=== PATIENT | male | born 1935 | race Caucasian/White ===

== ENCOUNTER → 2017-08-03 | Outpatient (CLI) | payer OTHER ==
[~2017-08-03] MED LIST: ASPI81EC PO; ATOR10 PO; CLOP75 PO; GLIP10 PO; GLYB5 PO; Hair, Skin & N1 EACH; INS70/30I SC; INSULANPEN; LISI20 PO; MAGCHL64ER PO; METF500 PO; METO25 PO; MULTI VITAMIN1 EACH PO; MULVITMIND PO; Nifedical Xl30 MG PO; OMEP20ER PO; PANT40 PO; SIMV80 PO
== END | disposition home or self-care (01) ==
LOC: LAB SHORT 08:22 → PLD 08:22
DX: D22.5 Melanocytic nevi of trunk (principal)
CPT/HCPCS: 88305

== ENCOUNTER 2019-03-28 11:17 | Day surgery (SDC) | payer OTHER ==
[~2019-03-28] VITALS: Ht 180.3 cm; Wt 87.5 kg
[~2019-03-28 11:17] MED LIST changes: +ALLO300 PO; +ELIQUIS2.5 MG PO; +FAMC500 PO; -INSULANPEN; +INSULANPEN SC; -METO25 PO; +METO25ER PO; +NIFE30ER PO; +NOVOLOG FL100 UNIT/1 SC; -Nifedical Xl30 MG PO; +OMEPRAZOLE20 MG PO
--- NOTE | 2019-03-28 12:08 | NUR ---
03/28/19 4687 Radha Staples PT WAS NOTIFIED OF DELAY. HE IS WAITING IN THE LOBBY WITH FAMILY. HE WAS ADVISED HE WILL BE BROUGHT BACK WHEN A ROOM IS AVAILABLE. HE WAS VERY UNDERSTANDING.
[2019-03-28 16:56] LABS: Performing Lab SYMBIODX; Test Name FLOW CYTOMETRY
[2019-03-30 15:43] LABS: Performing Lab SYMBIODX; Test Name TISSUE BLOCK
[2019-04-07 15:29] LABS: Result SEE PATHOTH RESULTS
== END 2019-03-28 16:11 | disposition home or self-care (01) ==
LOC: ORSCSDS 11:17
PROVIDERS: Otolaryngology
PROC: 07B10ZX Excision of Right Neck Lymphatic, Open Approach, Diagnostic (ICD-10-PCS; principal; 2019-03-28 13:00)
DX: C85.11 Unspecified B-cell lymphoma, lymph nodes of head, face, and neck (principal); I12.9 Hypertensive chronic kidney disease with stage 1 through stage 4 chronic kidney disease, or unspecified chronic kidney disease; E11.22 Type 2 diabetes mellitus with diabetic chronic kidney disease; N18.9 Chronic kidney disease, unspecified; Z87.891 Personal history of nicotine dependence; Z79.4 Long term (current) use of insulin; I48.91 Unspecified atrial fibrillation; Z79.01 Long term (current) use of anticoagulants; Z79.899 Other long term (current) drug therapy
CPT/HCPCS: 82947; 88184; 88185; 88271; 88275; 88305; 88341; 88342; 88377; J1100; J2250; J2405; J2704; J3010; J7120

== ENCOUNTER 2019-03-29 10:14 | Inpatient (IN) | payer OTHER ==
[~2019-03-29] VITALS: Ht 182.9 cm; Wt 90.3 kg
[2019-03-29 10:30] LABS: Calcium, Ionized (POC) 1.18 mmol/L (1.10-1.46); Chloride (POC) 102 mmol/L (98-108); Creatinine (POC) 1.8 mg/dL (0.8-1.3); Glucose (ISTAT POC) 394 mg/dL (70-99); Hemoglobin (POC) 15.6 g/dL (13.5-17.5); Potassium (POC) 5.5 mmol/L (3.5-5.5); Sodium (POC) 132 mmol/L (135-148); Total CO2 (POC) 21 mmol/L (21-32)
[2019-03-29 10:35] LABS: Hemoglobin 13.8 g/dL (13.5-17.5); Mean Corpuscular HGB 26.1 pg (26.0-34.0); Mean Corpuscular HGB Conc 30.7 g/dL (31.5-36.5); Mean Corpuscular Volume 85 fL (80-100); Mean Platelet Volume 10.4 fL (9.1-12.4); Platelet Count 160 K/mm3 (150-400); RDW Coefficient Variation 14.5 % (11.7-14.2); RDW Standard Deviation 44.1 fL (35.1-46.3); Red Blood Cell Count 5.28 M/mm3 (4.30-5.90); White Blood Cell Count 13.96 K/mm3 (4.00-11.30)
[2019-03-29 11:02] LABS: Albumin, Blood 2.9 g/dL (3.4-5.0); Albumin/Globulin Ratio 0.9 (0.8-1.8); Bun/Creatinine Ratio 30.9 (12.0-20.0); Calcium, Blood 8.8 mg/dL (8.5-10.1); Creatinine, Blood 1.78 mg/dL (0.60-1.20); Globulin, Blood 3.4 g/dL (2.2-4.0); Potassium, Blood 5.5 mmol/L (3.5-5.5); Total Protein, Blood 6.3 g/dL (6.4-8.2); Troponin I 0.087 ng/mL (0.000-0.040)
[2019-03-29 11:26] LABS: BAND PERCENT MAN 1 % (0-8); BASOPHILS PERCENT MAN 0 % (0-2); EOSINOPHILS PERCENT MAN 0 % (0-6); LYMPHOCYTES ABSOLUTE MAN 0.83 K/mm3 (0.84-5.20); LYMPHOCYTES PERCENT MAN 6 % (21-46); MONOCYTES ABSOLUTE MAN 1.39 K/mm3 (0.16-1.47); MONOCYTES PERCENT MAN 10 % (4-13); NEUTROPHILS ABSOLUTE MAN 11.72 K/mm3 (1.96-9.15); SEG NEUTROPHILS PERCENT MAN 83 % (41-73); TOTAL CELLS COUNTED 100
[2019-03-29 12:04] LABS: Magnesium, Blood 1.3 mg/dL (1.6-2.4)
[2019-03-29 12:08] LABS: Thyroid Stimulating Hormone 3.2 uIU/mL (0.360-4.800)
--- NOTE | 2019-03-29 13:08 | NUR ---
PT ARRIVAL Pt arrival to PCU 12 via [facility] with ED RN at bedside. Pt infusing cardizem at 5 upon arrival with a tele rate of 100 and a rhythm of afib. Pt symptomatic with transfer from [facility] to bed, stating "i feel short of breath when I move like that." Lungs clear t/o. O2 saturations >95% on RA. pt appears in no apparent sign of distress. VSS. Breathing even and unlabored at rest with mild VALENTIN with transfers. Pt steady on feet with transfer. Pt is alert and oriented, able to answer questions and converse appropriately with staff. Pt's , Julianna, and daughter, Katy are at bedside assisting with recall for admission questions. Pt with dressing CDI to R neck "they took out my lymph node to see if I have lymphoma again". No acute concerns. Cardizem infusing per orders. Pt denies current chest pain or pressure at this time. Will continue to monitor. See admission assessment for detailed systems assessment.
--- NOTE | 2019-03-29 16:45 | NUR ---
CARDIZEM turned onto standby d/t SBP <100 and sustained HR in 80s and PO metoprolol orders: discussd with clinical coordinator ROSI Miramontes and REVA Ferrell. Pt monitoring to continue via tele.
--- NOTE | 2019-03-29 17:21 | NUR ---
CRITICAL VALUE Pt with troponin of 4.700; denies chest pain or pressure, no changes to tele noted, HR sustaining in 80's with cardizem on standby since 1644. notified of value and orders recieved for cardiology consult. Will continue to monitor. next troponin draw is scheduled for 2229. VSS
--- NOTE | 2019-03-29 18:32 | NUR ---
Shift Summary Pt with events at previously noted. VSS. Denies chest pain or pressure this shift. Pt completely alert and fully oriented to surrounding. This pt is conversive with staff and asks appropriate questions to ensure knowledge - this pt is involved in his own care. No acute declines or changes to note (besides the previously noted troponin). Pt informs this RN that R neck dressing is to be changed 03/29/19 at night. Will continue to monitor and provide care per orders until NOC RN assumes care
[2019-03-29 20:30] LABS: Source, Urine Voided
[2019-03-29 20:36] LABS: Bilirubin, Urine Neg (Neg); Blood, Urine Neg (Neg); Glucose Qualitative, Urine 2+ (Neg); Ketones, Urine Neg (Neg); Leukocyte Esterase, Urine Neg (Neg); Nitrite, Urine Neg (Neg); Protein, Urine 1+ (Neg); Urobilinogen, Urine NORM (Normal)
[2019-03-29 20:38] LABS: Color, Urine Yellow (P-Yellow)
[2019-03-29 20:39] LABS: Appearance, Urine Clear (Clear)
--- NOTE | 2019-03-30 00:10 | NUR ---
CRITICAL TROPONIN: TROPONIN IS UP FROM 4.7 TO 5.54. BICYCLE I ASSEMBLER LILLIE RUANO NP IS NOTIFIED. NO NEW ORDERS AT THIS TIME. PATIENT IS CURRENTLY ON HEPARIN GTT @ 23.4 ML/HR, VS ARE STABLE PATIENT IS SLEEPING.
--- NOTE | 2019-03-30 00:15 | NUR ---
LATE ENTRY FOR 2000- HEPARIN GTT: HEPARIN GTT IS STARTED PER CARDIOLOGY ORDER AT 23.4 ML/HR.
[2019-03-30 01:14] LABS: Hematocrit 37.9 % (37.0-53.0); Hemoglobin 11.7 g/dL (13.5-17.5); Mean Corpuscular HGB 25.9 pg (26.0-34.0); Mean Corpuscular HGB Conc 30.9 g/dL (31.5-36.5); Mean Corpuscular Volume 84 fL (80-100); Mean Platelet Volume 10.5 fL (9.1-12.4); Platelet Count 138 K/mm3 (150-400); RDW Coefficient Variation 14.3 % (11.7-14.2); RDW Standard Deviation 42.9 fL (35.1-46.3); Red Blood Cell Count 4.52 M/mm3 (4.30-5.90); White Blood Cell Count 11.44 K/mm3 (4.00-11.30)
[2019-03-30 01:28] LABS: Bun/Creatinine Ratio 29.7 (12.0-20.0); Calcium, Blood 8.3 mg/dL (8.5-10.1); Creatinine, Blood 2.09 mg/dL (0.60-1.20); Potassium, Blood 5.2 mmol/L (3.5-5.5)
--- NOTE | 2019-03-30 06:32 | NUR ---
SHIFT SUMMARY: APPT AT 0108 WAS 45, RATE CHANGE PER PHARM IS NOW 14 U/KG/HR OR 25.2 ML/HR. BLOOD GLUCOSE WAS 411 AT HS, LILLIE RUANO NP WAS NOTIFIED AND ORDER TO GIVE COVERAGE PER SLIDING SCALE X 1 WAS OBTAINED AND 10 UNITS HUMALOG AND 25 UNITS LANTUS WERE GIVEN. RECHECKS WERE 348 AT 2312 AND 335 AT 0100. BP PRESSURES ARE TRENDING DOWN DURNING SLEEP 86/50 WITH A MEAN OF 63. RECHECK AN HOUR LATER WAS 86/59 LYING IN BED AND 95/59 SITTING AFTER STANDING TO VOID. PATIENT IS ASYMPTOMATIC, WITH NO COMPLAINTS OF CHEST PAIN OR DIZZINESS. PATIENT IS INSTRUCTED TO CALL FOR ASSIST OOB AND BED ALARM IS ON FOR SAFETY.
--- NOTE | 2019-03-30 08:43 | NUR ---
ASSUMED CARE Pt alert and oriented, VSS, denies chest pain or pressure, heprin gtt infusing at 14 u/kg/hr per orders and verifed with offgoing RN, Mony. No acute concerns reported overnight. Per , draw troponin until trending down. Follow up troponin ordered per Dr. Doyle and lab in now to draw. Awaiting results. Dr. Loaiza at bedside discussing plan of care with pt. HR under control between 90-105 per telemetry. Pt asymptomatic of afib. Echo in as well to complete ordered us. Will continue to monitor
--- NOTE | 2019-03-30 09:57 | NUR ---
CRITICAL VALUE TROPONIN cH at 4.65; this value is now trending down in expected direction. Per Dr. Doyle, d/c draws once troponin is trending down. Discussed with charge nurse. continuing to monitor.
--- NOTE | 2019-03-30 12:07 | NUR ---
Spiritual care visit conducted. Patient is lying in bed and alert. Patient's spouse Julianna and daughter Katy are bedside. Patient tells me about his cancer, kidney issues and heart issues. Patient and family share about their fear and their charles in the midst of what they are facing. I listen empathically, tell about my experience with Lymphoma and the good results, provide pastoral juvenile counselor and prayer. Patient and family respond well and show signs of increased hope. I will continue to remain available to patient and family.
--- NOTE | 2019-03-30 18:03 | NUR ---
SHIFT SUMMARY Pt seen by Dr. Loaiza and Dr. Galvez today; echo and renal US completed. Pt continues on heprin gtt with no rate changes this shift: 14u/kg/hr and 25 mls/hr. No chest pain or pressure, no dizziness or lightheadedness today. Pt remains in Afib with PVCs and rate trend of 100 today. BP remains lower with SBP between 85-96; all MAP >65. pt is involved with his care, asks appropriate questions to clarify and gain knowledge. Pt is alert and oriented, VSS, no acute distress this shift. Pt remains on RA. Pt is steady on feet, able to void at bedside into urinal. Per dr. Doyle; plan to continue heprin infusion, control HR with Metoprolol, possible angiogram 03/31 or 04/01 depending on renal labs. 100mls of NS infusing per orders. Pt able to visit with family throughout day and currenly sleeping. Will continue to monitor until NOC RN assumes care.
[2019-03-31 04:43] LABS: Hematocrit 36.9 % (37.0-53.0); Hemoglobin 11.3 g/dL (13.5-17.5); Mean Corpuscular HGB Conc 30.6 g/dL (31.5-36.5); Mean Corpuscular Volume 85 fL (80-100); Mean Platelet Volume 10.6 fL (9.1-12.4); Platelet Count 114 K/mm3 (150-400); RDW Coefficient Variation 14.5 % (11.7-14.2); RDW Standard Deviation 43.9 fL (35.1-46.3); Red Blood Cell Count 4.35 M/mm3 (4.30-5.90); White Blood Cell Count 10.05 K/mm3 (4.00-11.30)
[2019-03-31 04:59] LABS: Bun/Creatinine Ratio 26.5 (12.0-20.0); Calcium, Blood 8.5 mg/dL (8.5-10.1); Creatinine, Blood 1.85 mg/dL (0.60-1.20); Magnesium, Blood 1.5 mg/dL (1.6-2.4); Potassium, Blood 4.9 mmol/L (3.5-5.5)
[2019-03-31 05:12] LABS: BASOPHILS PERCENT MAN 1 % (0-2); EOSINOPHILS PERCENT MAN 1 % (0-6); LYMPHOCYTES % ATYPICAL MANUAL 3 % (0-0); LYMPHOCYTES ABSOLUTE MAN 2.21 K/mm3 (0.84-5.20); LYMPHOCYTES PERCENT MAN 19 % (21-46); MONOCYTES PERCENT MAN 13 % (4-13); NEUTROPHILS ABSOLUTE MAN 6.33 K/mm3 (1.96-9.15); SEG NEUTROPHILS PERCENT MAN 63 % (41-73); TOTAL CELLS COUNTED 100
--- NOTE | 2019-03-31 06:06 | NUR ---
SHIFT SUMMARY PT SLEEPING IN ROOM COMFORTABLY AT THIS TIME. NO ACUTE CHANGES IN STATUS T/O NIGHT. PT SLEPT POORLY UNTIL MIDNIGHT, WHEN IV WAS REMOVED FROM LAC AND REPLACED IN EFRAIN, AND PT WAS MEDICATED WITH MELATONIN. AFTER THIS PT SLEPT WELL. DENIED ANY CP OR SOB. RESP EVEN UNLABORED ON RA W/ SATS >92%. PT ABLE TO USE URINAL INDEPENDENTLY AT BEDSIDE. CALLS APPROPRIATELY. HEPARIN GT INFUSING IN PIV, NS INFUSING IN SECOND PIV. DENIES OTHER NEEDS. CALL LIGHT IN REACH.
--- NOTE | 2019-03-31 07:32 | NUR ---
ASSUMED CARE: PT RESTING QUIETLY, AFIB 90S ON TELE AT THIS TIME. NO ACUTE NEEDS OR CONCERNS.
--- NOTE | 2019-03-31 09:05 | NUR ---
DR MACARIO CAME TO SEE PT AND FELT CARDIOLOGY MAY NOT DO CATH DUE TO ELEVATED CREATININE. PT STATED THAT DR FERNANDEZ TOLD HIM SHE MAY PERFORM CATH TODAY. CALL TO DR TOLEDO. SHE STATES SHE SIGNED OFF TO DR LÓPEZ. DISCUSSED WITH PT WHO AGREED TO HOLD BREAKFAST DEPENDING ON WHAT DR LÓPEZ SAYS. MANUFACTURING INSPECTOR AWARE
--- NOTE | 2019-03-31 17:38 | NUR ---
SHIFT SUMMARY: DR LÓPEZ CAME TO SEE PT THIS SHIFT AND PLANS FOR ANGIO IN AM. NPO AFTER MN. HEPARIN GTT AND IV FLUIDS RUNNING. HAS BEEN AFIB IN 90S T/O SHIFT. DENIES CP. DENIES FURTHER NEEDS OR CONCERNS.
[2019-04-01 04:09] LABS: EOSINOPHILS ABSOLUTE AUTO 0.32 K/mm3 (0.00-0.68); EOSINOPHILS PERCENT AUTO 3 % (0-6); Hematocrit 39.6 % (37.0-53.0); Hemoglobin 11.9 g/dL (13.5-17.5); Mean Corpuscular HGB 25.3 pg (26.0-34.0); Mean Corpuscular HGB Conc 30.1 g/dL (31.5-36.5); Mean Corpuscular Volume 84 fL (80-100); Mean Platelet Volume 10.8 fL (9.1-12.4); Platelet Count 109 K/mm3 (150-400); RDW Coefficient Variation 14.7 % (11.7-14.2); RDW Standard Deviation 44.3 fL (35.1-46.3); Red Blood Cell Count 4.71 M/mm3 (4.30-5.90); White Blood Cell Count 9.34 K/mm3 (4.00-11.30)
[2019-04-01 04:10] LABS: BASOPHILS ABSOLUTE AUTO 0.05 K/mm3 (0.00-0.23); BASOPHILS PERCENT AUTO 1 % (0-2); IMMATURE GRAN ABSOLUTE AUTO 0.07 K/mm3 (0.00-0.10); IMMATURE GRAN PERCENT AUTO 1 % (0-1); LYMPHOCYTES ABSOLUTE AUTO 2.12 K/mm3 (0.84-5.20); LYMPHOCYTES PERCENT AUTO 23 % (21-46); MONOCYTES PERCENT AUTO 27 % (4-13); NEUTROPHILS ABSOLUTE AUTO 4.28 K/mm3 (1.96-9.15); NEUTROPHILS PERCENT AUTO 46 % (41-73)
[2019-04-01 04:26] LABS: Bun/Creatinine Ratio 21.9 (12.0-20.0); Calcium, Blood 8.7 mg/dL (8.5-10.1); Creatinine, Blood 1.51 mg/dL (0.60-1.20); Potassium, Blood 4.6 mmol/L (3.5-5.5)
--- NOTE | 2019-04-01 05:40 | NUR ---
SHIFT SUMMARY PT RESTING COMFORTABLY IN ROOM AT THIS TIME. NO ACUTE CHANGES IN STATUS T/O NIGHT. PT REPORTS DID NOT SLEEP WELL, REPORTS RESTLESS D/T LACK OF ACTIVITY WHILE IN HOSP. RESP EVEN UNLABORED ON RA W/ SATS >92%. DENIED ANY CP OR SOB. PT DID HAVE ONE EPISDOE OF VTACH DURING NIGHT LASTING 10 SECONDS. PT REPORTS WAS COMPLETELY ASYMPTOMATIC OF EVENT DENIED ANY CP OR SOB OR FLUTTERING. PT USED URINAL INDEPENDENTLY AT BEDSIDE T/O NIGHT. DENIED NEEDS. HEPARIN INFUSING IN PIV PER PHARMACY PROTOCOL. CALL LIGHT IN REACH.
--- NOTE | 2019-04-01 07:30 | NUR ---
ASSUMED CARE: PT RESTING QUIETLY AT THIS TIME. SPEAKS TO STAFF, DENIES CP OR CONCERNS. HEPARIN GTT RUNNING.
--- NOTE | 2019-04-01 09:05 | NUR ---
PT TAKEN TO FILL PLANT OPERATOR AT THIS TIME BY [facility]ART CENTER STAFF
--- NOTE | 2019-04-01 10:47 | NUR ---
PT RETURNED FROM SCALING MACHINE OPERATOR. RIGHT TR BAND IN PLACE. SMALL BRUISE AT INSERTION SITE NOTED. VSS AT THIS TIME.
--- NOTE | 2019-04-01 11:06 | NUR ---
DR TURNER AWARE OF SWELLING AROUND LYMPH BIOPSY SITE. DR WHEELER TO APPLY ICE NEEDED. PT HAVING MINOR COUGH, INSTRUCTIONS FOR I.S. PT WAS PROVIDED I.S. AND INSTRUCTED TO USE AT LEAST 10 TIMES EVERY HOUR.
--- NOTE | 2019-04-01 14:25 | NUR ---
2CCS REMOVED FROM TR BAND AT THIS TIME. SMALL BRUISE NOTED AT INSERTION. NO FURTHER SIGNS OF HEMATOMA OR BLEEDING
--- NOTE | 2019-04-01 15:23 | NUR ---
3CC REMOVED FROM TR BAND. SCANT BLEEDING. NO NEW BRUISING NOTED
--- NOTE | 2019-04-01 15:53 | NUR ---
2MLS REMOVED FROM TR BAND. NO NEW BRUISING OR BLEEDING NOTED
--- NOTE | 2019-04-01 16:56 | NUR ---
TR BAND DEFLATED BUT STILL IN PLACE. NO NEW BLEEDING OR BRUISING NOTED
--- NOTE | 2019-04-01 18:27 | NUR ---
SHIFT SUMMARY: TR BAND REMOVED WITH SCANT BLEEDING AND PUFFINESS AROUND TR BAND. APPEARS TO BE DUE TO TIGHTNESS. PLAN IS FOR POSSIBLE DC IN AM. NO FURTHER NEEDS OR CONCERNS.
--- NOTE | 2019-04-02 06:29 | NUR ---
SHIFT SOTERO.ASSUMED CARE AT 1900. FREQ CHECK OF RT WRIST . CIRC CHECKS WNL. TR REMOVED EARLIER AND INTACT OCCLUSIVE DSG. NO ACUTE CHANGE IN SWELLING THUR NOC OF RT NECK AREA . SUTURES INTACT AND NO S/S OF INFECTION. NO REPORT OF PAIN. CONTROLLED AF W/ OCCASIONAL PVC'S. REFUSED HS SNACK AND HELD LANTUS. SNACK NOW .
[2019-04-02] MEDS ORDERED: CLOP75 PO (10:46)
[2019-04-02] MEDS ORDERED: Isosorbide Mono30 MG PO (10:48)
[2019-04-02] MEDS ORDERED: MELATONIN5 M1 PO (10:49)
--- NOTE | 2019-04-02 13:11 | NUR ---
Spiritual care visit conducted. Patient is lying in bed and alert. Patient's Julianna is bedside. 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 Patient and Jacy voice their concerns going forward about further treatment. I listen empathically and provide pastoral school counselor and prayer. Patient and Jacy respond well and state their appreciation for the visit and the prayer they also verbalize their appreciation for the nursing staff and state that they are very caring and smart.
--- NOTE | 2019-04-02 13:25 | NUR ---
0730-ASSUMED CARE OF PT. PT IS ALERT AND ORIENTED. DENIES PAIN. PT HAS AN ARMBAND TO HIS R WRIST. POST RADIAL ACCESS SITE IS SLIGHTLY BRUISED AND HAS A LITTLE HEMATOMA NOTED. PT IS AFEBRILE. 0900-PT SEEN BY DR. SWAIN, PT WILL BE DISCHARGED TODAY. 1200-DISCHARGE INSTRUCTIONS GIVEN TO PT AND . 1215-PT WENT HOME AT THIS TIME.
== END 2019-04-02 12:20 | disposition home or self-care (01) | DRG 280 ==
LOC: ER 10:14 → PCU 10:15
PROVIDERS: Emergency Medicine; Nurse Practitioner Acute Care; ADMIT Internal Medicine
PROC: B2111ZZ Fluoroscopy of Multiple Coronary Arteries using Low Osmolar Contrast (ICD-10-PCS; principal; 2019-04-01)
DX: I21.4 Non-ST elevation (NSTEMI) myocardial infarction (principal); I50.21 Acute systolic (congestive) heart failure; C85.90 Non-Hodgkin lymphoma, unspecified, unspecified site; R65.10 Systemic inflammatory response syndrome (SIRS) of non-infectious origin without acute organ dysfunction; N17.9 Acute kidney failure, unspecified; I13.0 Hypertensive heart and chronic kidney disease with heart failure and stage 1 through stage 4 chronic kidney disease, or unspecified chronic kidney disease; Z79.4 Long term (current) use of insulin; Z86.73 Personal history of transient ischemic attack (TIA), and cerebral infarction without residual deficits; I48.0 Paroxysmal atrial fibrillation; E11.22 Type 2 diabetes mellitus with diabetic chronic kidney disease; N18.3 Chronic kidney disease, stage 3 (moderate); Z87.891 Personal history of nicotine dependence; Z92.21 Personal history of antineoplastic chemotherapy; I25.10 Atherosclerotic heart disease of native coronary artery without angina pectoris; D69.59 Other secondary thrombocytopenia
CPT/HCPCS: 36415; 71045; 76770; 76937; 80047; 80048; 80053; 82947; 83690; 83735; 83880; 84443; 84484; 85014; 85025; 85027; 85347; 85730; 92920; 93005; 93010; 93306; 93454; 96365; 96366; 96375; 99152; 99153; 99285-25; C1725; C1769; C1887; C1894; C9113; G0378; J1644; J2250; J2405; J3010; J3475; J7030; J7040; Q9967

== ENCOUNTER 2019-05-28 23:06 | Observation (INO) | payer OTHER ==
[~2019-05-28] VITALS: Ht 180.3 cm; Wt 86.2 kg
[~2019-05-28 23:06] MED LIST changes: +ASPI81CH PO; +Isosorbide Mono30 MG PO; +MELATONIN5 M1 PO; +PRED20 PO
[2019-05-28 23:34] LABS: BASOPHILS ABSOLUTE AUTO 0.08 K/mm3 (0.00-0.23); BASOPHILS PERCENT AUTO 0 % (0-2); EOSINOPHILS ABSOLUTE AUTO 0.03 K/mm3 (0.00-0.68); EOSINOPHILS PERCENT AUTO 0 % (0-6); Hematocrit 31.5 % (37.0-53.0); Hemoglobin 9.8 g/dL (13.5-17.5); IMMATURE GRAN ABSOLUTE AUTO 0.93 K/mm3 (0.00-0.10); IMMATURE GRAN PERCENT AUTO 5 % (0-1); LYMPHOCYTES ABSOLUTE AUTO 0.91 K/mm3 (0.84-5.20); LYMPHOCYTES PERCENT AUTO 5 % (21-46); MONOCYTES PERCENT AUTO 6 % (4-13); Mean Corpuscular HGB 28.3 pg (26.0-34.0); Mean Corpuscular HGB Conc 31.1 g/dL (31.5-36.5); Mean Corpuscular Volume 91 fL (80-100); Mean Platelet Volume 10.5 fL (9.1-12.4); NEUTROPHILS ABSOLUTE AUTO 14.98 K/mm3 (1.96-9.15); NEUTROPHILS PERCENT AUTO 83 % (41-73); NRBC ABSOLUTE 0.02 K/mm3 (0.00-0.02); NRBC Auto 0.1 /100 WBC (0.0-0.2); Platelet Count 100 K/mm3 (150-400); RDW Coefficient Variation 20.9 % (11.7-14.2); RDW Standard Deviation 66.1 fL (35.1-46.3); Red Blood Cell Count 3.46 M/mm3 (4.30-5.90); White Blood Cell Count 18.03 K/mm3 (4.00-11.30)
[2019-05-28 23:51] LABS: BAND PERCENT MAN 4 % (0-8); BASOPHILS PERCENT MAN 0 % (0-2); EOSINOPHILS PERCENT MAN 0 % (0-6); LYMPHOCYTES PERCENT MAN 5 % (21-46); METAMYELOCYTE ABSOLUTE MAN 0.54 K/mm3 (0.00-0.00); METAMYELOCYTE PERCENT MAN 3 % (0-0); MONOCYTES ABSOLUTE MAN 0.18 K/mm3 (0.16-1.47); MONOCYTES PERCENT MAN 1 % (4-13); SEG NEUTROPHILS PERCENT MAN 87 % (41-73); TOTAL CELLS COUNTED 100
[2019-05-28 23:55] LABS: Alanine Aminotransfer (ALT/SGP 28 U/L (12-78); Albumin/Globulin Ratio 1.2 (0.8-1.8); Alk Phos 212 U/L (50-136); Anion Gap 5 mmol/L (6-16); Aspartate Aminotrans (AST/SGOT 27 U/L (12-37); Bilirubin, Total 0.4 mg/dL (0.1-1.0); Blood Urea Nitrogen 25 mg/dL (8-24); Bun/Creatinine Ratio 22.7 (12.0-20.0); CO2, Blood 30 mmol/L (21-32); Chloride, Blood 107 mmol/L (98-108); Globulin, Blood 2.5 g/dL (2.2-4.0); Glomerular Filtration Rate >60 (60-); Glucose, Blood 212 mg/dL (70-99); Potassium, Blood 3.8 mmol/L (3.5-5.5); Sodium, Blood 142 mmol/L (136-145); Total Protein, Blood 5.5 g/dL (6.4-8.2); Troponin I 0.018 ng/mL (0.000-0.040)
[2019-05-28] MEDS ORDERED: FILG480I INJ (23:57)
[2019-05-28] MEDS ORDERED: ALLO100 PO (23:58)
[2019-05-28] MEDS ORDERED: ACYC200 PO (23:58)
[2019-05-28] MEDS ORDERED: SEVE800 PO (23:59)
--- NOTE | 2019-05-29 06:04 | NUR ---
Patient gave this student nurse permission to take care of him on 05/29/2019 from [id number].
--- NOTE | 2019-05-29 07:45 | NUR ---
PT ADMITTED FROM ER AT APPROX 0400 FOR URI. SURGICAL CONSULT CALLED. PT DENIES PAIN AND N/V UPON ARRIVAL. GIVEN 50MCG OF FENT IN ER. FLUIDS INFUSING THROUGH PICC LINE IN EFRAIN. PT GIVEN ABX PER EMAR. PT HAS BEEN NPO SINCE MIDNIGHT.
[2019-05-29 09:04] LABS: BASOPHILS ABSOLUTE AUTO 0.05 K/mm3 (0.00-0.23); BASOPHILS PERCENT AUTO 0 % (0-2); EOSINOPHILS ABSOLUTE AUTO 0.01 K/mm3 (0.00-0.68); EOSINOPHILS PERCENT AUTO 0 % (0-6); Hematocrit 30.6 % (37.0-53.0); Hemoglobin 9.4 g/dL (13.5-17.5); IMMATURE GRAN ABSOLUTE AUTO 0.41 K/mm3 (0.00-0.10); IMMATURE GRAN PERCENT AUTO 3 % (0-1); LYMPHOCYTES ABSOLUTE AUTO 0.81 K/mm3 (0.84-5.20); LYMPHOCYTES PERCENT AUTO 5 % (21-46); MONOCYTES ABSOLUTE AUTO 1.14 K/mm3 (0.16-1.47); MONOCYTES PERCENT AUTO 7 % (4-13); Mean Corpuscular HGB Conc 30.7 g/dL (31.5-36.5); Mean Corpuscular Volume 91 fL (80-100); Mean Platelet Volume 10.3 fL (9.1-12.4); NEUTROPHILS ABSOLUTE AUTO 13.32 K/mm3 (1.96-9.15); NEUTROPHILS PERCENT AUTO 85 % (41-73); NRBC ABSOLUTE 0.02 K/mm3 (0.00-0.02); NRBC Auto 0.1 /100 WBC (0.0-0.2); Platelet Count 98 K/mm3 (150-400); RDW Coefficient Variation 20.7 % (11.7-14.2); RDW Standard Deviation 66.4 fL (35.1-46.3); Red Blood Cell Count 3.36 M/mm3 (4.30-5.90); White Blood Cell Count 15.74 K/mm3 (4.00-11.30)
[2019-05-29 09:20] LABS: Alanine Aminotransfer (ALT/SGP 25 U/L (12-78); Albumin, Blood 2.8 g/dL (3.4-5.0); Albumin/Globulin Ratio 1.1 (0.8-1.8); Alk Phos 201 U/L (50-136); Anion Gap 6 mmol/L (6-16); Aspartate Aminotrans (AST/SGOT 25 U/L (12-37); Bilirubin, Total 0.5 mg/dL (0.1-1.0); Blood Urea Nitrogen 24 mg/dL (8-24); Bun/Creatinine Ratio 23.3 (12.0-20.0); CO2, Blood 28 mmol/L (21-32); Calcium, Blood 7.8 mg/dL (8.5-10.1); Chloride, Blood 108 mmol/L (98-108); Creatinine, Blood 1.03 mg/dL (0.60-1.20); Globulin, Blood 2.5 g/dL (2.2-4.0); Glomerular Filtration Rate >60 (60-); Glucose, Blood 217 mg/dL (70-99); Sodium, Blood 142 mmol/L (136-145); Total Protein, Blood 5.3 g/dL (6.4-8.2)
--- NOTE | 2019-05-29 12:31 | NUR ---
PT verbalized permission for care on 05/29/2019. PT appears A&o x4.
--- NOTE | 2019-05-29 12:47 | NUR ---
Spiritual care visit conducted. Upon receiving an admit referral, I visit patient. Patient is lying in bed and alert. Patient immediately tells me about his reis with cancer, the medical issues his spouse, Julianna, is dealing with and the current plan with his gallbladder. Patient talks about his life in review, his family and his Yazidi charles. We discuss , dying and the afterlife. Patient has a deep sense of peace but would prefer to avoid pain and suffering. I listen empathically, reinforce helpful attitudes and practices and provide grief support, companionship, pastoral risk reduction counselor and prayer. Patient responds well and shows signs of an elevated mood. I will continue to remain available to patient and family.
--- NOTE | 2019-05-29 14:20 | NUR ---
PT TO DAY SURGERY VIA [facility]
--- NOTE | 2019-05-29 14:45 | NUR ---
History, Chart, Medications and Allergies reviewed before start of procedure. Patient confirms NPO status and agrees with scheduled surgery. Lungs clear T/O to Auscultation.
--- NOTE | 2019-05-29 15:30 | NUR ---
OR TRACKER CARD GIVEN TO PATIENT'S FAMILY, OPPORTUNITY FOR QUESTIONS PROVIDED.
--- NOTE | 2019-05-29 15:30 | NUR ---
STUDENT NURSE PRESENT WITH PATIENT, PLANS TO FOLLOW THROUGH SURGERY.
--- NOTE | 2019-05-29 15:46 | NUR ---
HEART SURGEON REPORT COMPLETED AT BEDSIDE WITH ROSI COOK.
--- NOTE | 2019-05-29 18:51 | NUR ---
RETURN TO ROOM PT APPEARS TO BE CONFUSED. DOENS'T ANSWER ?'S AND SWATS PEOPLE AWAY. DAUGHTER INTO SEE PT FOR SHORT TIME. PT MADE HAND MOVEMENTS TO SHOO HER AWAY WELL. BED ALARM SET. CASEY COMPRESSED WITH SMALL AMOUNT SS FLUID IN IT. VSS.
[2019-05-30 04:10] LABS: BASOPHILS ABSOLUTE AUTO 0.03 K/mm3 (0.00-0.23); BASOPHILS PERCENT AUTO 0 % (0-2); EOSINOPHILS PERCENT AUTO 0 % (0-6); Hematocrit 27.2 % (37.0-53.0); Hemoglobin 8.6 g/dL (13.5-17.5); IMMATURE GRAN ABSOLUTE AUTO 0.33 K/mm3 (0.00-0.10); IMMATURE GRAN PERCENT AUTO 3 % (0-1); LYMPHOCYTES ABSOLUTE AUTO 0.39 K/mm3 (0.84-5.20); LYMPHOCYTES PERCENT AUTO 3 % (21-46); MONOCYTES ABSOLUTE AUTO 0.34 K/mm3 (0.16-1.47); MONOCYTES PERCENT AUTO 3 % (4-13); Mean Corpuscular HGB Conc 31.6 g/dL (31.5-36.5); Mean Corpuscular Volume 92 fL (80-100); Mean Platelet Volume 10.3 fL (9.1-12.4); NEUTROPHILS ABSOLUTE AUTO 11.72 K/mm3 (1.96-9.15); NEUTROPHILS PERCENT AUTO 92 % (41-73); Platelet Count 98 K/mm3 (150-400); RDW Coefficient Variation 21.1 % (11.7-14.2); RDW Standard Deviation 68.6 fL (35.1-46.3); Red Blood Cell Count 2.97 M/mm3 (4.30-5.90); White Blood Cell Count 12.81 K/mm3 (4.00-11.30)
[2019-05-30 04:27] LABS: Alanine Aminotransfer (ALT/SGP 35 U/L (12-78); Albumin, Blood 2.5 g/dL (3.4-5.0); Albumin/Globulin Ratio 1.1 (0.8-1.8); Alk Phos 173 U/L (50-136); Anion Gap 5 mmol/L (6-16); Aspartate Aminotrans (AST/SGOT 30 U/L (12-37); Bilirubin, Total 0.7 mg/dL (0.1-1.0); Blood Urea Nitrogen 29 mg/dL (8-24); CO2, Blood 28 mmol/L (21-32); Calcium, Blood 7.6 mg/dL (8.5-10.1); Chloride, Blood 105 mmol/L (98-108); Creatinine, Blood 1.21 mg/dL (0.60-1.20); Globulin, Blood 2.3 g/dL (2.2-4.0); Glomerular Filtration Rate >60 (60-); Glucose, Blood 279 mg/dL (70-99); Potassium, Blood 4.4 mmol/L (3.5-5.5); Sodium, Blood 138 mmol/L (136-145); Total Protein, Blood 4.8 g/dL (6.4-8.2)
--- NOTE | 2019-05-30 06:33 | NUR ---
SHIFT SUMMARY POD 1 S/P LAP URI. ABD SITES X3 STERI STRIPS C/D/I. CASEY DRAIN TO RLQ IN PLACE AND DRAINING SS WITH DRESSING C/D/I. PT A/OX4 WITH VSS. AMBULATING TO BATHROOM WITH SBA. TOLERATING REGULAR DIET WITH ADEQUATE PO INTAKE. PAIN MANAGED WITH ONE NORCO. APPEARS TO HAVE SLEPT WELL T/O SHIFT. IS CURRENTLY RESTING IN BED WITH CALL LIGHT IN REACH. WILL CONT TO MONITOR AND GIVE REPORT TO ONCOMING RN.
--- NOTE | 2019-05-30 07:30 | NUR ---
pt awake laying in bed stated min pain no flatus no nausea pt stated that he is hungry this morning
--- NOTE | 2019-05-30 08:50 | NUR ---
dr way called re pt bs re cory low s/s coverage for bs 281 pt stated at home he counts his sugar (carb) would take 6 units for what he ate this am
--- NOTE | 2019-05-30 10:25 | NUR ---
PT RESTING WAKES TO VERBAL STIMULI PT STATED FEELING GOOD ASKED WHEN THE DR IS COMING BY AND IF HE GETS TO GO HOME TODAY
--- NOTE | 2019-05-30 11:23 | NUR ---
DR SOSA BY TO SEE PT OK TO DISCHARGE HOME IF OK WITH DR SANCHEZ
[2019-05-30] MEDS ORDERED: LORCET 5-325 M1 EACH PO (13:29)
[2019-05-30] MEDS ORDERED: POLYETHYLENE G500 G1 PO (13:30)
[2019-05-30] MEDS ORDERED: SENN187 PO (13:32)
[2019-05-30] MEDS ORDERED: AMOCLA500 PO (13:33)
[2019-05-30] MEDS ORDERED: METR500 PO (13:34)
--- NOTE | 2019-05-30 15:07 | NUR ---
dr arredondo by to see pt yusra drain removed ok to discharge home rx called to [facility] hard copy rx given for pain meds
--- NOTE | 2019-05-30 15:40 | NUR ---
discharge instructions reviewed with pt and family no acute changes pt dressed pt req a pain pill before discharge wc escort to car
== END 2019-05-30 15:38 | disposition home or self-care (01) ==
LOC: ER 23:06 → SURS 23:08 → ER 05-29 03:48 → SURS 05-29 03:48 → ER 05-29 04:51 → SURS 05-29 04:51
PROVIDERS: Emergency Medicine; Internal Medicine; Surgery; ADMIT Hospitalist
PROC: BF03YZZ Plain Radiography of Gallbladder and Bile Ducts using Other Contrast (ICD-10-PCS; principal; 2019-05-29 12:45)
PROC: 0FT44ZZ Resection of Gallbladder, Percutaneous Endoscopic Approach (ICD-10-PCS; principal; 2019-05-29 12:45)
DX: K80.12 Calculus of gallbladder with acute and chronic cholecystitis without obstruction (principal); A41.9 Sepsis, unspecified organism; I48.0 Paroxysmal atrial fibrillation; I13.0 Hypertensive heart and chronic kidney disease with heart failure and stage 1 through stage 4 chronic kidney disease, or unspecified chronic kidney disease; E11.22 Type 2 diabetes mellitus with diabetic chronic kidney disease; I50.22 Chronic systolic (congestive) heart failure; I25.10 Atherosclerotic heart disease of native coronary artery without angina pectoris; C83.10 Mantle cell lymphoma, unspecified site; N18.3 Chronic kidney disease, stage 3 (moderate); E78.5 Hyperlipidemia, unspecified; Z79.899 Other long term (current) drug therapy; Z87.891 Personal history of nicotine dependence; Z79.01 Long term (current) use of anticoagulants; Z79.82 Long term (current) use of aspirin; Z79.4 Long term (current) use of insulin
CPT/HCPCS: 71045; 74176; 74300; 76705; 80053; 82947; 83690; 84484; 85025; 87040; 88304; 93005; 93010; 96361; 96365; 96366; 96375; 99285-25; A9270-GY; C1729; G0378; J0692; J0696; J1100; J2370; J2405; J2704; J2710; J3010; J7030; J7050; J7120; J7512

== ENCOUNTER → 2019-08-13 | Outpatient (CLI) | payer OTHER ==
[~2019-08-13] MED LIST changes: +ACYC200 PO; +ALLO100 PO; +AMOCLA500 PO; +FILG480I INJ; +LORCET 5-325 M1 EACH PO; +METR500 PO; +POLYETHYLENE G500 G1 PO; +SENN187 PO; +SEVE800 PO
[2019-08-13 17:24] LABS: Albumin, Blood 3.2 g/dL (3.4-5.0); Albumin/Globulin Ratio 1.3 (0.8-1.8); Bilirubin, Total 0.7 mg/dL (0.1-1.0); Bun/Creatinine Ratio 25.4 (12.0-20.0); Calcium, Blood 8.9 mg/dL (8.5-10.1); Creatinine, Blood 1.42 mg/dL (0.60-1.20); Globulin, Blood 2.5 g/dL (2.2-4.0); Potassium, Blood 4.9 mmol/L (3.5-5.5); Total Protein, Blood 5.7 g/dL (6.4-8.2)
== END | disposition home or self-care (01) ==
LOC: LAB SHORT 16:26 → OLS 16:26
PROVIDERS: Internal Medicine Hematology & Oncology
DX: C85.91 Non-Hodgkin lymphoma, unspecified, lymph nodes of head, face, and neck (principal)
CPT/HCPCS: 80053; 83615